=== PATIENT | male | born 1950 | race Native Hawaiian/Other Pacific Islander ===

== ENCOUNTER 2018-04-14 12:33 | Outpatient (CLI) | payer OTHER ==
[~2018-04-14 12:33] MED LIST: ASA LO-DOSE81 MG PO; CARDURA4 MG PO; CLON1TAB18 PO; DIVA500T PO; EMSAM12 MG/24 H TD; GLIM4TAB PO; GLIP10TA55 PO; HYDR25TA60 PO; LAMO100T OR; LEVEMIR SC; LEVO0.0723 PO; LIPITOR20 MG PO; LISI20TA11 PO; METF100038 OR; NEXIUM40 M1 PO; TAMS0.4C PO
== END 2018-04-14 12:37 | disposition short-term general hospital (02) ==
LOC: AMB 12:33
DX: R04.0 Epistaxis (principal); R53.1 Weakness
CPT/HCPCS: A0425; A0427

== ENCOUNTER 2018-04-14 12:45 | Emergency (ER) | payer OTHER ==
[~2018-04-14] VITALS: Ht 182.9 cm; Wt 95.3 kg
[2018-04-14 12:50] VITALS: TEMP 98
[2018-04-14 14:40] VITALS: BP 140/80
== END 2018-04-14 14:40 | disposition home or self-care (01) ==
LOC: ED 12:45
DX: R04.0 Epistaxis (principal)
CPT/HCPCS: 99282

== ENCOUNTER 2020-09-13 08:06 | Outpatient (CLI) | payer OTHER | END 2020-09-13 23:15 | disposition home or self-care (01) | LOC: LABW 08:06 | PROVIDERS: ATTEND Internal Medicine Endocrinology, Diabetes & Metabolism | DX: Z00.00 Encounter for general adult medical examination without abnormal findings (principal); E11.65 Type 2 diabetes mellitus with hyperglycemia; E78.5 Hyperlipidemia, unspecified; E03.9 Hypothyroidism, unspecified; G62.9 Polyneuropathy, unspecified; R53.83 Other fatigue; Z79.899 Other long term (current) drug therapy | CPT/HCPCS: 36415; 82306; 82607; 83525; 83735; 84681 ==

== ENCOUNTER 2020-09-26 08:50 | Outpatient (CLI) | payer OTHER | END 2020-09-26 22:50 | disposition home or self-care (01) | LOC: LABW 08:50 | PROVIDERS: ATTEND Podiatrist | DX: B35.1 Tinea unguium (principal) | CPT/HCPCS: 36415; 84450; 84460 ==

== ENCOUNTER 2020-10-27 13:00 | Outpatient (CLI) | payer OTHER | END 2020-10-27 19:14 | disposition home or self-care (01) | LOC: LABW 13:00 | PROVIDERS: ATTEND Internal Medicine Advanced Heart Failure and Transplant Cardiology | DX: B35.1 Tinea unguium (principal) | CPT/HCPCS: 36415; 84450; 84460 ==

== ENCOUNTER 2022-03-03 09:21 | Outpatient (CLI) | payer OTHER | END 2022-03-03 20:13 | disposition home or self-care (01) | LOC: US 09:21 | PROVIDERS: ATTEND Specialist | DX: R31.9 Hematuria, unspecified (principal) ==